=== PATIENT | male | born 1945 | race Caucasian/White ===

== ENCOUNTER → 2018-10-31 | Outpatient (CLI) | payer OTHER, MEDICARE | LOC: FIMAGING 16:11 | PROVIDERS: ATTEND Otolaryngology | DX: E04.2 Nontoxic multinodular goiter (principal) ==

== ENCOUNTER → 2018-11-09 | Outpatient (CLI) | payer OTHER, MEDICARE | LOC: FIMAGING 08:59 | PROVIDERS: ATTEND Otolaryngology | DX: R42 Dizziness and giddiness (principal); E04.2 Nontoxic multinodular goiter | CPT/HCPCS: 78012; A9516 ==

== ENCOUNTER → 2018-11-11 | Outpatient (CLI) | payer OTHER, MEDICARE ==
[~2018-11-11] MED LIST: GADOBUTROL 10 ML VIAL IVP ONE
== END ==
LOC: FIMAGING 07:42
PROVIDERS: ATTEND Internal Medicine
DX: D33.3 Benign neoplasm of cranial nerves (principal); R94.02 Abnormal brain scan
CPT/HCPCS: 70553; A9585

== ENCOUNTER 2019-02-21 14:01 | Emergency (ER) | payer OTHER, MEDICARE ==
--- NOTE | 2019-02-21 14:08 | EDPHY ---
H & P Stated Complaint: Headache Time Seen by Provider: 02/21/19 14:07 HPI/ROS: CHIEF COMPLAINT: Headache HISTORY OF PRESENT ILLNESS: The patient presents the ED for evaluation of a progressively worsening headache over the past 4 days. The patient was diagnosed with strep throat on Wednesday and started on antibiotics. The patient initially was developing a nocturnal headache however over the past day he has had a ongoing constant headache. The patient describes a central headache in his forehead which radiates to his occiput. The patient denies any fever. He reports his sore throat has improved. He denies any history of fall or trauma. The patient denies any acute numbness or weakness. The patient is not anticoagulated. He has no prior history of these types of headaches. REVIEW OF SYSTEMS: A comprehensive 10 point review of systems is otherwise negative aside from elements mentioned in the history of present illness. Source: Patient Exam Limitations: No limitations - Personal History Current Tetanus/Diphtheria Vaccine: Yes Current Tetanus Diphtheria and Acellular Pertussis (TDAP): Yes - Medical/Surgical History Hx Asthma: No Hx Chronic Respiratory Disease: No Hx Diabetes: No Hx Cardiac Disease: No Hx Renal Disease: No Hx Cirrhosis: No Hx Alcoholism: No Hx HIV/AIDS: No Hx Splenectomy or Spleen Trauma: No Other PMH: htn, hyperlipidemia, glacoma - Social History Smoking Status: Never smoked - Physical Exam Exam: General Appearance: Alert, no distress Eyes: Pupils equal and round no pallor or injection ENT, Mouth: Mucous membranes moist Respiratory: There are no retractions, lungs are clear to auscultation Cardiovascular: Regular rate and rhythm Gastrointestinal: Abdomen is soft and nontender, no masses, bowel sounds normal Neurological: A&O, normal motor function, normal sensory exam, normal cranial nerves Skin: Warm and dry, no rashes Musculoskeletal: Neck is supple nontender Extremities: symmetrical, full range of motion Constitutional: Initial Vital Signs Temperature (C) 36.8 C 02/21/19 14:05 Heart Rate 51 L 02/21/19 14:05 Respiratory Rate 16 02/21/19 14:05 Blood Pressure 157/99 H 02/21/19 14:05 O2 Sat (%) 95 02/21/19 14:05 O2 Delivery Mode Room Air Allergies/Adverse Reactions: No Known Allergies Allergy (Unverified 02/21/19 14:03) Home Medications: Medication Instructions Recorded Finasteride 09/02/14 Simvastatin 09/02/14 Brimonidine 0.1% 02/21/19 Lisinopril-Hctz 10-12.5 mg Tab 02/21/19 Lumigan 0.01% (*) 02/21/19 Omeprazole 02/21/19 Medical Decision Making - Diagnostics Imaging Results: Imaging Impressions Head CT 02/21/19 14:31 Impression: 1. Cerebrovascular atherosclerosis. 2. No acute hemorrhage, hydrocephalus or mass effect. 3. No significant sinusitis. 4. Consider additional MR imaging, if clinically indicated. Findings and recommendations discussed with Emergency Department physician, Escobar Barba, at 15:0 hours, 02/21/2019. Final report concurs with initial preliminary interpretation. Brain MRI 02/21/19 15:07 Impression: 1. Mild supratentorial atrophy and nonspecific white matter disease, as previously seen. 2. Nothing acute intracranially. Findings and recommendations discussed with Escobar Barba M.D., at 1600 hours, on February 21, 2019. Final report concurs with initial preliminary interpretation. ED Course/Re-evaluation: The patient presents to the ED for evaluation of a one-week history of a progressively worsening frontal headache. The patient states that he was diagnosed with strep throat earlier in the week. He has no clinical evidence of that disease currently. The patient has no meningeal symptoms and he was noted to be neurologically intact. He is not anticoagulated given the atypical nature of the patient's headache he was taken for a CT head without contrast which demonstrates no evidence of an acute abnormality. Given concerns about the possibility of a sagittal vein thrombosis I did order an MRI which was also negative. In the emergency department the patient was treated with IV Toradol 1st and then received IV Benadryl and Decadron. I had a lengthy discussion with the patient about the utility lumbar puncture. The patient has no clinical evidence of meningitis and I doubt subarachnoid hemorrhage given the pattern of his headache. Differential Diagnosis: Differential diagnosis considered includes intracranial hemorrhage, PLUSH WEAVER mass, viral meningitis, tension headache, migraine headache, sinusitis - Data Points Laboratory Results: Laboratory Results 02/21/19 14:20 02/21/19 14:20 02/21/19 02/21/19 02/21/19 14:20 14:20 14:20 WBC 6.25 10^3/uL 10^3/uL (3.80-9.50) RBC 5.13 10^6/uL 10^6/uL (4.40-6.38) Hgb 16.2 g/dL g/dL (13.7-17.5) Hct 47.5 % % (40.0-51.0) MCV 92.6 fL fL (81.5-99.8) MCH 31.6 pg pg (27.9-34.1) MCHC 34.1 g/dL g/dL (32.4-36.7) RDW 14.0 % % (11.5-15.2) Plt Count 184 10^3/uL 10^3/uL (150-400) MPV 10.5 fL fL (8.7-11.7) Neut % (Auto) 59.3 % % (39.3-74.2) Lymph % (Auto) 30.1 % % (15.0-45.0) Mckinley % (Auto) 8.3 % % (4.5-13.0) Eos % (Auto) 1.6 % % (0.6-7.6) Baso % (Auto) 0.5 % % (0.3-1.7) Nucleat RBC Rel Count 0.0 % % (0.0-0.2) Absolute Neuts (auto) 3.71 10^3/uL 10^3/uL (1.70-6.50) Absolute Lymphs (auto) 1.88 10^3/uL 10^3/uL (1.00-3.00) Absolute Monos (auto) 0.52 10^3/uL 10^3/uL (0.30-0.80) Absolute Eos (auto) 0.10 10^3/uL 10^3/uL (0.03-0.40) Absolute Basos (auto) 0.03 10^3/uL 10^3/uL (0.02-0.10) Absolute Nucleated RBC 0.00 10^3/uL 10^3/uL (0-0.01) Immature Gran % 0.2 % % (0.0-1.1) Immature Gran # 0.01 10^3/uL 10^3/uL (0.00-0.10) PT 12.9 SEC SEC (12.0-15.0) INR 1.01 (0.83-1.16) APTT 37.3 SEC SEC (23.0-38.0) Sodium 136 mEq/L mEq/L (135-145) Potassium 3.8 mEq/L mEq/L (3.5-5.2) Chloride 101 mEq/L mEq/L (97-110) Carbon Dioxide 28 mEq/l mEq/l (22-31) Anion Gap 7 mEq/L mEq/L (6-14) BUN 19 mg/dL mg/dL (7-23) Creatinine 1.0 mg/dL mg/dL (0.7-1.3) Estimated GFR > 60 Glucose 88 mg/dL mg/dL (70-100) Calcium 9.4 mg/dL mg/dL (8.5-10.4) Medications Given: Discontinued Medications Dexamethasone (Decadron Injection) 10 mg IVP EDNOW ONE Stop: 02/21/19 16:21 Last Admin: 02/21/19 16:38 Dose: 10 mg Diphenhydramine HCl (Benadryl Injection) 25 mg IVP EDNOW ONE Stop: 02/21/19 16:21 Last Admin: 02/21/19 16:38 Dose: 25 mg Hydromorphone HCl (Dilaudid) 0.5 mg IVP EDNOW ONE Stop: 02/21/19 14:15 Last Admin: 02/21/19 14:19 Dose: 0.5 mg Metoclopramide HCl (Reglan Injection) 10 mg IVP EDNOW ONE Stop: 02/21/19 16:21 Last Admin: 02/21/19 16:38 Dose: 10 mg
[2019-02-21] MEDS ORDERED: HYDROmorphONE/DILAUDID 2 MG/ML INJ IVP ONE (14:14)
[2019-02-21 15:26] LABS: PLATELET COUNT 184 10^3/uL (150-400)
[2019-02-21 15:31] LABS: INR 1.01 (0.83-1.16); PROTIME(PATIENT) 12.9 SEC (12.0-15.0)
[2019-02-21] MEDS ORDERED: DEXAMETHASONE 10 MG/ML VIAL IVP ONE (16:20)
[2019-02-21] MEDS ORDERED: METOCLOPRAMIDE 10 MG/2 ML VIAL IVP ONE (16:20)
[2019-02-21 17:59] VITALS: BP 127/87
== END 2019-02-21 18:04 | disposition home or self-care (01) ==
DX: R51 Headache (principal); J02.0 Streptococcal pharyngitis; I10 Essential (primary) hypertension; E78.5 Hyperlipidemia, unspecified
CPT/HCPCS: 70450; 70551; 96374; 96375; 99285; J1100; J1170; J1200; J2765